=== PATIENT | female | born 1990 | race Caucasian/White ===

== ENCOUNTER → 2019-04-20 15:40 | Outpatient (CLI) | payer OTHER, SELFPAY ==
--- NOTE | 2019-04-20 15:46 | DI.RAD.S_ITS ---
PROCEDURE: XR FINGER LT MIN 2V INDICATIONS: Left 3rd finger deformity TECHNIQUE: AP hand, 2 views of the third finger(s) acquired. COMPARISON: None. FINDINGS: Bones: There is an oblique fracture in the third proximal phalanx with mild displacement and angulation. No suspicious bony lesions. Soft tissues: No suspicious soft tissue calcifications. Soft tissue swelling proximal surfacing tear. IMPRESSION: Third proximal phalangeal fracture with mild displacement and angulation. Dictated by: Jos Dudley M.D. on 04/20/2019 at 16:09 Approved by: Jos Dudley M.D. on 04/20/2019 at 16:12
== END ==
PROVIDERS: Family Provider Internal Medicine Medical Oncology; PCP Internal Medicine Medical Oncology; Visit Provider Nurse Practitioner
DX: S62.613A Displaced fracture of proximal phalanx of left middle finger, initial encounter for closed fracture (principal)
CPT/HCPCS: 73140